=== PATIENT | male | born 1955 | race Caucasian/White ===

== ENCOUNTER → 2018-04-29 10:20 | Outpatient (CLI) | payer OTHER, SELFPAY ==
[2014-02-19 21:37] VITALS: BMI 41.9
[2018-04-29 12:14] LABS: Hematocrit 42.2 % (40-54); Hemoglobin 14.7 g/dl (13.0-16.5); Mean Corp Hgb Conc 34.8 g/gl (32-36); Mean Corpuscular Hgb 32.2 pg (27.0-32.0); Mean Corpuscular Volume 92.3 fL (80-94); Mean Platelet Vol. 10.6 fl (6.2-12.0); Platelet Count 217 K/mm3 (150-450); RBC Distribution Width CV 13.7 % (11.6-14.6); RBC Distribution Width SD 45.1 fl (35.1-43.9); Red Blood Count 4.57 M/mm3 (4.6-6.2); White Blood Count 6.3 K/mm3 (4.4-11.0)
[2018-04-29 12:25] LABS: Scan Indicated on CBC? Y/N NO
[2018-04-29 12:27] LABS: ALB/GLOB Ratio 0.9 RATIO (0.9-2.4); AST(SGOT) 29 U/L (15-37); Alanine Aminotransfer ALT/SGPT 51 U/L (16-61); Albumin, Serum 3.7 g/dL (3.2-5.0); Alkaline Phosphatase 60 U/L (45-117); Anion Gap 8 (5-15); BUN 13 mg/dL (7-18); BUN/Creat Ratio 14.9 RATIO (10-20); Chloride 103 mmol/L (98-107); Cholesterol 158 mg/dL (200); Creatinine, Serum 0.88 mg/dL (0.70-1.30); EST Glomerular Filtration Rate 94 mL/min (>60); Est Glom Filt Rate - Afr Amer 114 mL/min (>60); Globulin 3.9 g/dL (2.2-4.2); Glucose 143 mg/dL (74-106); High Density Lipoprotein 49 mg/dL; Potassium 3.3 mmol/L (3.5-5.1); Protein, Total 7.6 g/dL (6.4-8.2); Sodium Level 139 mmol/L (136-145); Triglycerides 148 mg/dL; Very Low Density Lipoprotein 30 mg/dL (5-40)
[2018-04-29 12:28] LABS: Hemoglobin A1c 6.9 % (4.2-6.3)
[2018-04-30 08:52] LABS: Hep C Antibodies <0.1 s/co ratio (0.0-0.9)
--- OUTSIDE RECORDS SUMMARY | 2018-06-24 18:42 | XMS RPT_ITS ---
:1955 Author Organization OHIP Care Team Providers Name Role Phone TAWANNA OLGUIN, MSStephanie FLORENTINO SStephanie Attending Unavailable TAWANNA OLGUIN, MSStephanie FLORENTINO SStephanie Primary Care Unavailable TAWANNA OLGUIN, MSStephanie FLORENTINO SStephanie Attending Unavailable TAWANNA OLGUIN, MSStephanie ARNOLDFLORENTINO SStephanie Primary Care Unavailable Baldev Maya Attending Unavailable Baldev Maya Referring Unavailable Florentino Leonard QUALITY PROCESS ENGINEER-C Primary Care Unavailable Florentino Leonard QUALITY PROCESS ENGINEER-C Attending Unavailable Florentino Leonard QUALITY PROCESS ENGINEER-C Referring Unavailable Florentino Leonard QUALITY PROCESS ENGINEER-C Primary Care Unavailable PROBLEMS PROBLEMS DATE TYPE CONDITION / CODE ATTENDING STATUS SOURCE 02/03/2018 Admitting Essential (primary) TAWANNA OLGUIN, Active [facility] Diagnosis hypertension / MS. [facility] I10(ICD-10) Repository 02/03/2018 Admitting Encounter for TAAWNNA RN LACTATION, Active [facility] Diagnosis screening for MS. FLORENTINO Mitchell malignant neoplasm Repository of prostate / Z12.5(ICD-10) 02/03/2018 Admitting Mixed hyperlipidemia TAWANNASANTANA OLGUIN, Active [facility] Diagnosis / E78.2(ICD-10) MS. FLORENTINO Mitchell Repository 08/08/2017 Admitting Type 2 diabetes TAWANNA RN LACTATION, Active [facility] Diagnosis mellitus with other MS. FLORENTINO Mitchell specified Repository complication / E11.69(ICD-10) PROCEDURES PROCEDURES No Procedure Records FoundRESULTS RESULTS PSA,TOTAL - ANNUAL Collected: 05/19/2018 Status: F Source: BLAINE SCREEN 10:39 AM [facility] REPOSITORY TYPE CODE TESTS RESULT OUT OF RANGE REFERENCE UNITS LAB L501.9910 0.00-4.00 ng/mL Normal PSA,TOT 0.46 SCREEN Result Comment: This test was performed using the TPSA assay method for the [employer] chemistry system. Values obtained with different assay methods cannot be used interchangably. When changing PSA assays in the course of monitoring a patient, additional sequential testing should be carried out to confirm baseline values. Performed By: #### L501.9910 #### [facility] [address] [facility], [address] CBC-COMPLETE BLOOD CNT Collected: 04/29/2018 Status: F Source: BLAINE NO DIFF 10:29 AM [facility] REPOSITORY TYPE CODE TESTS RESULT OUT OF RANGE REFERENCE UNITS LAB L100.1000 4.4-11.0 K/mm3 Normal WBC 6.3 LAB L100.1200 4.6-6.2 M/mm3 Low RBC 4.57 LAB L100.1300 13.0-16.5 g/dl Normal HGB 14.7 LAB L100.1400 40-54 % Normal HCT 42.2 LAB L100.1500 80-94 fL Normal MCV 92.3 LAB L100.1600 27.0-32.0 pg High MCH 32.2 LAB L100.1700 32-36 g/gl Normal MCHC 34.8 LAB L100.1810 11.6-14.6 % Normal RDW CV 13.7 LAB L100.1820 35.1-43.9 fl High RDW SD 45.1 LAB L100.1900 150-450 K/mm3 Normal PLT 217 LAB L100.2000 6.2-12.0 fl Normal MPV 10.6 Performed By: #### L100.0500 #### [facility] [address], [address] COMPREHENSIVE METABOLIC Collected: 04/29/2018 Status: F Source: BLAINE THRASHER 10:29 AM [facility] REPOSITORY TYPE CODE TESTS RESULT OUT OF RANGE REFERENCE UNITS LAB L501.0100 74-106 mg/dL High GLU 143 Result Comment: Fasting Glucose result greater than or equal to 126 mg/dL suggests DIABETES MELLITUS per A.D.A. criteria. Please note revised GLUCOSE reference range effective 2017. LAB L501.1000 7-18 mg/dL Normal BUN 13 LAB L501.1100 0.70-1.30 mg/dL Normal CREAT,SERUM 0.88 Result Comment: The validity of the calculated GFR AND GFRAA in patients over 70 years has not been determined. Clinical correlation is essential. LAB L501.1110 >60 mL/min Normal EST GFR 94 Result Comment: Non- GFR Calc LAB L501.1115 >60 mL/min Normal EST GFR - AA 114 Result Comment: GFR Calc LAB L501.1300 10-20 RATIO Normal BUN/CRE 14.9 LAB L501.1500 6.4-8.2 g/dL T Normal PROT 7.6 LAB L501.1800 3.2-5.0 g/dL Normal ALB 3.7 LAB L501.1950 2.2-4.2 g/dL Normal GLOB 3.9 LAB L501.2000 0.9-2.4 RATIO Normal A/G 0.9 LAB L501.2200 8.5-10.1 mg/dL CA Normal 9.0 LAB L501.4100 15-37 U/L Normal AST 29 LAB L501.4305 45-117 U/L Normal ALK P 60 LAB L501.4405 16-61 U/L Normal ALT 51 LAB L501.4600 0.20-1.00 mg/dL High T BILI 1.20 LAB L501.5300 136-145 mmol/L NA Normal 139 LAB L501.5600 3.5-5.1 mmol/L Low K 3.3 LAB L501.5900 98-107 mmol/L CL Normal 103 LAB L501.6100 21.0-32.0 mmol/L Normal CO2 28.0 LAB L501.6200 5-15 Normal GAP 8 Performed By: #### L500.4050, L500.4100 #### [facility] [address] [place], [place], [id number] LIPID PROFILE Collected: 04/29/2018 Status: F Source: GRATON 10:29 AM [facility] REPOSITORY TYPE CODE TESTS RESULT OUT OF RANGE REFERENCE UNITS LAB L501.4900 200 mg/dL Normal CHOL 158 Result Comment: <200 mg/dL Desirable 200-240 mg/dL Borderline >240 mg/dL High Risk LAB L501.5000 mg/dL Normal TRIG 148 Result Comment: The drugs N-Acetylcysteine and Metamizole may falsely depress this assay. Serum Triglycerides Reference Interval Normal <150 mg/dL Borderline high 150 - 199 mg/dL High 200 - 499 mg/dL Very High > or = 500 mg/dL LAB L501.6400 mg/dL Normal HDL 49 Result Comment: The drugs N-Acetylcysteine and Metamizole may falsely depress this assay. Reference Range HDL <40 mg/dL Low HDL Cholesterol HDL >or= 60 mg/dL High HDL Cholesterol LAB L501.6500 0-130 mg/dL Normal LDL 79 LAB L501.6600 5-40 mg/dL Normal VLDL 30 Performed By: #### L500.4050, L500.4100 #### [facility] [address] [facility]. [place], [place], [id number] HEMOGLOBIN A1C Collected: 04/29/2018 Status: F Source: [place] 10:29 AM [facility] REPOSITORY TYPE CODE TESTS RESULT OUT OF RANGE REFERENCE UNITS LAB L501.9985 4.2-6.3 % High HGB A1C 6.9 Performed By: #### L501.9985 #### [facility] [address] [facility]. [place], [place], [address] HEPATITIS C ANTIBODIES Collected: 04/29/2018 Status: F Source: [place] 10:29 AM [facility] REPOSITORY TYPE CODE TESTS RESULT OUT OF RANGE REFERENCE UNITS LAB L3100.0650 0.0-0.9 s/co ratio Normal HEP C AB <0.1 Result Comment: Negative: < 0.8 Indeterminate: 0.8 - 0.9 Positive: > 0.9 The CDC recommends that a positive HCV antibody result be followed up with a HCV Nucleic Acid Amplification test (456704). Performed at: - [facility] [address] [id number] [employer] Supervisor: Jr Wolf PhD, Phone: [phone] Performed By: #### L3100.0625 #### [facility] (refer to report for specific site) refer to report for address and phone number CBC Collected: 02/03/2018 Status: F Source: [facility] 10:28 AM [facility] REPOSITORY TYPE CODE TESTS RESULT OUT OF REFERENCE UNITS RANGE LAB WBC(LOINC) 4.60-10.80 10 3/mcL WBC 6.40 LAB RBCCT(LOINC 4.04-6.13 10 6/mcL ) RBC 4.60 LAB HGB(LOINC) 14.0-18.0 G/dL Hgb 15.0 LAB HCT(LOINC) 42.0-52.0 % Hct 42.6 LAB MCV(LOINC) 80.0-94.0 fL MCV 92.6 LAB MCH(LOINC) 27.0-31.2 pg High MCH 32.6 LAB MCHC(LOINC) 31.8-35.4 G/dL MCHC 35.3 LAB RDW(LOINC) 11.5-14.5 % RDW 14.3 LAB PLT(LOINC) 130-400 10 3/mcL Platelet 214 LAB MPV(LOINC) 7.4-10.4 fL MPV 8.7 Performed By: #### CBC, ADIFF, ANEU #### [address] [address] #### PSA, LIPID, CMP, GFR #### [address] [address] .AUTO DIFF Collected: 02/03/2018 Status: F Source: [facility] 10:28 AM [facility] REPOSITORY TYPE CODE TESTS RESULT OUT OF REFERENCE UNITS RANGE LAB NEDRA(LOINC) 37.0-80.0 % Neutrophil % 49.7 LAB LYM(LOINC) 10.0-50.0 % Lymphocyte % 34.3 LAB MON(LOINC) 1.7-13.0 % Monocyte % 8.3 LAB EO(LOINC) 0.0-7.0 % Eosinophil % 6.9 LAB BAS(LOINC) 0.0-2.5 % Basophil % 0.8 LAB ABLYM(LOIN 0.77-3.85 10 3/mcL C) Lymphocyte, 2.20 Absolute LAB ALFREDO(LOINC 0.15-1.00 10 3/mcL ) Monocyte, 0.50 Absolute LAB AEOS(LOINC 0.00-0.40 10 3/mcL ) Eosinophil, 0.40 Absolute LAB ABAS(LOINC 0.00-0.19 10 3/mcL ) Basophil, 0.10 Absolute Performed By: #### CBC, ADIFF, ANEU #### [place] [address] #### PSA, LIPID, CMP, GFR #### [place] [address] .NEUABS Collected: 02/03/2018 Status: F Source: [facility] [employer] 10:28 [facility] REPOSITORY TYPE CODE TESTS RESULT OUT OF REFERENCE UNITS RANGE LAB ANEU(LOINC) 2.85-6.16 10 3/mcL Neutrophil, 3.20 Absolute Performed By: #### CBC, ADIFF, ANEU #### [place] [address] #### PSA, LIPID, CMP, GFR #### [place] [address] PSA Collected: 02/03/2018 Status: F Source: [facility] [employer] 10:28 [facility] REPOSITORY TYPE CODE TESTS RESULT OUT OF REFERENCE UNITS RANGE LAB PSA(LOINC) 0.00-4.00 ng/mL Prostate 0.52 Specific Antigen Performed By: #### CBC, ADIFF, ANEU #### [place] [address] #### PSA, LIPID, CMP, GFR #### [place] [address] LIPID Collected: 02/03/2018 Status: F Source: [place] [employer] 10:28 [facility] REPOSITORY TYPE CODE TESTS RESULT OUT OF REFERENCE UNITS RANGE LAB CHOL(LOINC 0-200 mg/dL ) Cholesterol 149 Result Comment: Cholesterol Reference Interval: Less than 200 Desirable 200-239 Borderline high risk 240 and above High risk LAB TRIG(LOINC) 0-150 mg/dL Triglycerides High 169 Result Comment: Triglyceride Reference Interval: Less than 150 Normal 150-199 Borderline high risk 200-499 High risk 500 or higher Very high risk LAB HD(LOINC) 40-60 mg/dL HDL Cholesterol 43 LAB LDL(LOINC) 0-130 mg/dL LDL Cholesterol 72 Performed By: #### CBC, PATRICIAIFF, ANEU #### [place] [address] [place], [place] [address] #### PSA, LIPID, CMP, GFR #### [place] [address] CMP Collected: 02/03/2018 Status: F Source: [facility] 10:28 AM [facility] REPOSITORY TYPE CODE TESTS RESULT OUT OF REFERENCE UNITS RANGE LAB GLU(LOINC) 80-115 mg/dL Glucose Level 85 LAB NA(LOINC) 136-145 mmol/L Sodium Level 142 LAB K(LOINC) 3.5-5.1 mmol/L Low Potassium Level 3.2 LAB CL(LOINC) 98-107 mmol/L Chloride 102 LAB CO2(LOINC) 23-31 mmol/L CO2 25 LAB EBAL(LOINC mEq/L ) Electrolyte Balance 15.0 LAB BUN(LOINC) 7-18 mg/dL BUN 13 LAB CRE(LOINC) 0.70-1.30 mg/dL Creatinine Lvl (s) 0.85 LAB BC(LOINC) 7-27 ratio BUN/Creatinine 15 Ratio LAB CA(LOINC) 8.4-10.2 mg/dL Calcium Lvl 9.3 LAB PROT(LOINC 6.4-8.2 G/dL ) Total Protein 6.9 LAB ALB(LOINC) 3.4-4.8 G/dL Albumin Level 3.7 LAB GLB(LOINC) G/dL Globulin 3.2 LAB AG(LOINC) 1.1-2.5 ratio A/G Ratio 1.2 LAB BILT(LOINC 0.2-1.0 mg/dL ) Bili Total High 1.4 LAB AP(LOINC) 40-135 U/L Alk Phos 44 LAB AST(LOINC) 10-40 U/L AST/SGOT 33 LAB ALT(LOINC) 10-35 U/L ALT/SGPT High 52 Performed By: #### CBC, ADIFF, ANEU #### [place] [address] [place], [place] [address] #### PSA, LIPID, CMP, GFR #### [facility] [address] [place] [address] .GFR Collected: 02/03/2018 Status: F Source: [employer] 10:28 AM [facility] REPOSITORY TYPE CODE TESTS RESULT OUT OF REFERENCE UNITS RANGE LAB GFRAA(LOINC ml/min/1.73 ) sqm GFR 111 Bahamian Result Comment: GFR Population mean for , Non- Americans Ages 20-29 = 116 mL/min/1.73 sq.m. Ages 30-39 = 107 mL/min/1.73 sq.m. Ages 40-49 = 99 mL/min/1.73 sq.m. Ages 50-59 = 93 mL/min/1.73 sq.m. Ages 60-69 = 85 mL/min/1.73 sq.m. Ages 70+ = 75 mL/min/1.73 sq.m. Chronic Kidney Disease: Less than 60 mL/min/1.73 square meters End Stage Renal Disease: Less than 15 mL/min/1.73 square meters LAB GFRNO(LOINC) ml/min/1.73sqm GFR Non- 92 Result Comment: GFR Population mean for , Non- Americans Ages 20-29 = 116 mL/min/1.73 sq.m. Ages 30-39 = 107 mL/min/1.73 sq.m. Ages 40-49 = 99 mL/min/1.73 sq.m. Ages 50-59 = 93 mL/min/1.73 sq.m. Ages 60-69 = 85 mL/min/1.73 sq.m. Ages 70+ = 75 mL/min/1.73 sq.m. Chronic Kidney Disease: Less than 60 mL/min/1.73 square meters End Stage Renal Disease: Less than 15 mL/min/1.73 square meters Performed By: #### CBC, ADIFF, ANEU #### [facility] [address] [address] #### PSA, LIPID, CMP, GFR #### [address] [address] CBC Collected: 08/08/2017 Status: F Source: [employer] 10:35 AM [facility] REPOSITORY TYPE CODE TESTS RESULT OUT OF REFERENCE UNITS RANGE LAB WBC(LOINC) 4.60-10.80 10 3/mcL WBC 7.50 LAB RBCCT(LOINC 4.04-6.13 10 6/mcL ) RBC 4.87 LAB HGB(LOINC) 14.0-18.0 G/dL Hgb 15.1 LAB HCT(LOINC) 42.0-52.0 % Hct 44.9 LAB MCV(LOINC) 80.0-94.0 fL MCV 92.1 LAB MCH(LOINC) 27.0-31.2 pg MCH 30.9 LAB MCHC(LOINC) 31.8-35.4 G/dL MCHC 33.6 LAB RDW(LOINC) 11.5-14.5 % RDW 14.3 LAB PLT(LOINC) 130-400 10 3/mcL Platelet 189 LAB MPV(LOINC) 7.4-10.4 fL MPV 9.7 Performed By: #### CBC, ADIFF, ANEU, CMP, GFR, LIPID #### [address] [address] .AUTO DIFF Collected: 08/08/2017 Status: F Source: [facility] 10:35 AM [facility] REPOSITORY TYPE CODE TESTS RESULT OUT OF REFERENCE UNITS RANGE LAB NEDRA(LOINC) 37.0-80.0 % Neutrophil % 64.2 LAB LYM(LOINC) 10.0-50.0 % Lymphocyte % 23.2 LAB MON(LOINC) 1.7-13.0 % Monocyte % 7.0 LAB EO(LOINC) 0.0-7.0 % Eosinophil % 4.9 LAB BAS(LOINC) 0.0-2.5 % Basophil % 0.7 LAB ABLYM(LOIN 0.77-3.85 10 3/mcL C) Lymphocyte, 1.70 Absolute LAB ALFREDO(LOINC 0.15-1.00 10 3/mcL ) Monocyte, 0.50 Absolute LAB AEOS(LOINC 0.00-0.40 10 3/mcL ) Eosinophil, 0.40 Absolute LAB ABAS(LOINC 0.00-0.19 10 3/mcL ) Basophil, 0.00 Absolute Performed By: #### CBC, ADIFF, ANEU, CMP, GFR, LIPID #### [address] [address] .NEUABS Collected: 08/08/2017 Status: F Source: [facility] 10:35 AM [facility] REPOSITORY TYPE CODE TESTS RESULT OUT OF REFERENCE UNITS RANGE LAB ANEU(LOINC) 2.85-6.16 10 3/mcL Neutrophil, 4.80 Absolute Performed By: #### CBC, ADIFF, ANEU, CMP, GFR, LIPID #### [place] [address] [place], [place] [address] CMP Collected: 08/08/2017 Status: F Source: [facility] 10:35 AM [facility] REPOSITORY TYPE CODE TESTS RESULT OUT OF REFERENCE UNITS RANGE LAB 1547-9 70-105 mg/dL GLUCOSE High 127 LAB NA(LOINC) 136-146 mEq/L Sodium Level 139 LAB K(LOINC) 3.5-5.1 mEq/L Potassium Level 3.9 LAB CL(LOINC) 98-107 mEq/L Chloride 98 LAB CO2(LOINC) 22-29 mEq/L CO2 High 33 LAB EBAL(LOINC mEq/L ) Electrolyte Balance 8.0 LAB BUN(LOINC) 7.0-18.0 mg/dL BUN 14.4 LAB CRE(LOINC) 0.6-1.2 mg/dL Creatinine Lvl (s) 0.9 LAB BC(LOINC) 7-27 ratio BUN/Creatinine 16 Ratio LAB CA(LOINC) 8.4-10.2 mg/dL Calcium Lvl 9.7 LAB PROT(LOINC 6.0-8.3 G/dL ) Total Protein 6.7 LAB ALB(LOINC) 3.5-5.0 G/dL Albumin Level 4.1 LAB GLB(LOINC) G/dL Globulin 2.6 LAB AG(LOINC) 1.1-2.5 ratio A/G Ratio 1.6 LAB BILT(LOINC 0.2-1.0 mg/dL ) Bili Total High 1.2 LAB AP(LOINC) 40-135 IU/L Alk Phos 55 LAB AST(LOINC) 10-40 IU/L AST/SGOT High 44 LAB ALT(LOINC) 10-35 IU/L ALT/SGPT High 69 Performed By: #### CBC, ADIFF, ANEU, CMP, GFR, LIPID #### [place] [address] [place], [place] [address] .GFR Collected: 08/08/2017 Status: F Source: [employer] 10:35 AM [facility] REPOSITORY TYPE CODE TESTS RESULT OUT OF REFERENCE UNITS RANGE LAB GFRAA(LOINC ml/min/1.73 ) sqm GFR 106 Bahamian Result Comment: GFR Population mean for , Non- Americans Ages 20-29 = 116 mL/min/1.73 sq.m. Ages 30-39 = 107 mL/min/1.73 sq.m. Ages 40-49 = 99 mL/min/1.73 sq.m. Ages 50-59 = 93 mL/min/1.73 sq.m. Ages 60-69 = 85 mL/min/1.73 sq.m. Ages 70+ = 75 mL/min/1.73 sq.m. Chronic Kidney Disease: Less than 60 mL/min/1.73 square meters End Stage Renal Disease: Less than 15 mL/min/1.73 square meters LAB GFRNO(LOINC) ml/min/1.73sqm GFR Non- >60 Result Comment: GFR Population mean for , Non- Americans Ages 20-29 = 116 mL/min/1.73 sq.m. Ages 30-39 = 107 mL/min/1.73 sq.m. Ages 40-49 = 99 mL/min/1.73 sq.m. Ages 50-59 = 93 mL/min/1.73 sq.m. Ages 60-69 = 85 mL/min/1.73 sq.m. Ages 70+ = 75 mL/min/1.73 sq.m. Chronic Kidney Disease: Less than 60 mL/min/1.73 square meters End Stage Renal Disease: Less than 15 mL/min/1.73 square meters Performed By: #### CBC, ADIFF, ANEU, CMP, GFR, LIPID #### [place] [id number] LIPID Collected: 08/08/2017 Status: F Source: [employer] 10:35 AM [facility] REPOSITORY TYPE CODE TESTS RESULT OUT OF REFERENCE UNITS RANGE LAB CHOL(LOINC 131-200 mg/dL ) Cholesterol 157 Result Comment: Cholesterol Reference Interval: Less than 200 Desirable 200-239 Borderline high risk 240 and above High risk LAB TRIG(LOINC) 40-150 mg/dL Triglycerides 114 Result Comment: Triglyceride Reference Interval: Less than 150 Normal 150-199 Borderline high risk 200-499 High risk 500 or higher Very high risk LAB HD(LOINC) 35-90 mg/dL HDL Cholesterol 49 Result Comment: HDL Reference Interval: Less than 40 Low - high risk 60 or above Optimal/lowers risk LAB LDL(LOINC) 0-130 mg/dL LDL Cholesterol 85 Result Comment: LDL is a calculated result and requires a 12-hr fast. LDL Reference Interval: Less than 100 Optimal 100-129 Near or above optimal 130-159 Borderline high risk 160-189 High risk 190 and above Very high risk Performed By: #### CBC, ADIFF, ANEU, CMP, GFR, LIPID #### [place] [address] [place], [place] [address] ALLERGIES ALLERGIES DATE TYPE / CODE NAME / CODE REACTION SEVERITY SOURCE 02/19/2014 Drug No Known Unknown [facility] Allergy/4160 Allergies/F00 [facility] [address]31(SNOMED [id number](RXNOR Repository CT) M) ENCOUNTERS ENCOUNTERS ADMIT/DISCHARGE ACCOUNT NUMBER ADMITTING ENCOUNTER LOCATION SOURCE CLASS 05/19/2018 [id number] [facility] ding:[facility] Repository 04/29/2018 [id number] [facility] ding:[facility] Repository 02/03/2018/02/08/[id number] ding:[facility] Repository 08/08/2017/08/13/[id number] ding:[facility] Repository PAYERS PAYERS ENCOUNTER GUARANTOR PAYER SUBSCRIBER SOURCE 05/19/2018 MAURICE SANTOS0 Primary ULISES [address] [place] [address] Insurance:MEDICAL BROWNDOB: [facility] [id number] Hospital [address]Jgo: [phone]) Number: Repository [phone] () [id number] Date:[id number] [address]IG: 05/19/2018 Secondary NOT GIVENUNK [place] Insurance:SELF PAY [facility] Number: Effective Repository Date:2018-05-19 04/29/2018 Maurice Santos0 Primary ULISES E [place] [address] Insurance:MEDICAL BROWNDOB: [facility] [place], [place] [facility] [id number] Hospital [address]Vmh: [phone]) Number: Repository [phone] (HP) [id number] Date:[id number], [place] [address]PP: 04/29/2018 Secondary NOT GIVENUNK [place] Insurance:SELF PAY [facility] Number: Effective Repository Date:2018-04-29 02/03/2018 MAURICE Shaffer [facility]MEDICAL BROWNDOB: [facility] [address] [id number] Repository [address] Number: [address] [place] [id number] [email or web address]@S Date:2018-02-03Tel: [phone]) [email or web address].COMTel: [phone] Name:[employer] BOX (HP)Tel: (000) (HP)Tel: [phone] [address], [place] [phone] (WP) [phone] ([phone]: 08/08/2017 MAURICE Shaffer [facility]:MEDICAL BROWNDOB: [facility] E [address] [id number] Repository [address] Number: [address] [place], [place] [id number] [place] [address]~[email or web address]@S Date:2017-08-08Tel: [phone]) [email or web address]: [phone] Name:BPO BOX (HP)Tel: (000) (HP)Tel: [phone] [address], [place] [phone] (WP) [phone] (WP) [phone]:
== END ==
PROVIDERS: Family Provider Nurse Practitioner Primary Care; PCP Nurse Practitioner Primary Care; Referring Provider Nurse Practitioner Primary Care; Visit Provider Nurse Practitioner Primary Care
DX: Z11.59 Encounter for screening for other viral diseases (principal); E78.2 Mixed hyperlipidemia; E11.69 Type 2 diabetes mellitus with other specified complication
CPT/HCPCS: 36415; 80053; 80061; 83036; 85027; 86803

== ENCOUNTER → 2018-05-19 10:33 | Outpatient (CLI) | payer OTHER, SELFPAY ==
[2018-05-19 12:24] LABS: PSA,Total - Annual Screen 0.46 ng/mL (0.00-4.00)
--- OUTSIDE RECORDS SUMMARY | 2018-08-20 18:40 | XMS RPT_ITS ---
:1955 Author Organization [facility] Care Team Providers Name Role Phone TAWANNA OLGUIN, MSStephanie FLORENTINO SStephanie Attending Unavailable TAWANNA OLGUIN, MSStephanie FLORENTINO SStephanie Primary Care Unavailable TAWANNA OLGUIN, MSStephanie FLORENTINO SStephanie Attending Unavailable TAWANNA OLGUIN, MSStephanie ARNOLDFLORENTINO SStephanie Primary Care Unavailable Baldev Maya Attending Unavailable Baldev Maya Referring Unavailable Florentino Leonard TURBINE INSPECTOR-C Primary Care Unavailable Florentino Leonard TURBINE INSPECTOR-C Attending Unavailable Florentino Leonard TURBINE INSPECTOR-C Referring Unavailable Florentino Leonard TURBINE INSPECTOR-C Primary Care Unavailable PROBLEMS PROBLEMS DATE TYPE CONDITION / CODE ATTENDING STATUS SOURCE 02/03/2018 Admitting Essential (primary) TAWANNA OLGUIN, Active [facility] Diagnosis hypertension / MS. [facility] S. [facility] I10(ICD-10) Repository 02/03/2018 Admitting Encounter for TAWANNA SECURITY AND COMPLIANCE ANALYST, Active [facility] Diagnosis screening for MS. FLORENTINO Mitchell malignant neoplasm Repository of prostate / Z12.5(ICD-10) 02/03/2018 Admitting Mixed hyperlipidemia TAWANNASANTANA OLGUIN, Active [facility] Diagnosis / E78.2(ICD-10) MS. FLORENTINO Mitchell Repository 08/08/2017 Admitting Type 2 diabetes TAWANNA SECURITY AND COMPLIANCE ANALYST, Active [facility] Diagnosis mellitus with other MS. FLORENTINO Mitchell specified Repository complication / E11.69(ICD-10) PROCEDURES PROCEDURES No Procedure Records FoundRESULTS RESULTS PSA,TOTAL - ANNUAL Collected: 05/19/2018 Status: F Source: [place] SCREEN 10:39 AM [facility] REPOSITORY TYPE CODE TESTS RESULT OUT OF RANGE REFERENCE UNITS LAB L501.9910 0.00-4.00 ng/mL Normal PSA,TOT 0.46 SCREEN Result Comment: This test was performed using the TPSA assay method for the [employer] chemistry system. Values obtained with different assay methods cannot be used interchangably. When changing PSA assays in the course of monitoring a patient, additional sequential testing should be carried out to confirm baseline values. Performed By: #### L501.9910 #### [facility] [address] [place], [address] CBC-COMPLETE BLOOD CNT Collected: 04/29/2018 Status: F Source: [place] NO DIFF 10:29 AM [facility] REPOSITORY TYPE CODE TESTS RESULT OUT OF [...] MPV 10.6 Performed By: #### L100.0500 #### [facility] [address] [place], [address] COMPREHENSIVE METABOLIC Collected: 04/29/2018 Status: F Source: [place] THRASHER 10:29 AM [facility] REPOSITORY TYPE CODE TESTS RESULT OUT OF [...] 8 Performed By: #### L500.4050, L500.4100 #### [facility] [address] [place], [place], [id number] LIPID PROFILE Collected: 04/29/2018 Status: F Source: [place] 10:29 AM [facility] REPOSITORY TYPE CODE TESTS RESULT OUT OF [...] 30 Performed By: #### L500.4050, L500.4100 #### [facility] [address] [place], [place], [id number] HEMOGLOBIN A1C Collected: 04/29/2018 Status: F Source: [place] 10:29 AM [facility] REPOSITORY TYPE CODE TESTS RESULT OUT OF RANGE REFERENCE UNITS LAB L501.9985 4.2-6.3 % High HGB A1C 6.9 Performed By: #### L501.9985 #### [facility] [address] [place], [place], [address] HEPATITIS C ANTIBODIES Collected: 04/29/2018 Status: F Source: [place] 10:29 AM [facility] REPOSITORY TYPE CODE TESTS RESULT OUT OF RANGE REFERENCE UNITS LAB L3100.0650 0.0-0.9 s/co ratio Normal HEP C AB <0.1 Result Comment: Negative: < 0.8 Indeterminate: 0.8 - 0.9 Positive: > 0.9 The CDC recommends that a positive HCV antibody result be followed up with a HCV Nucleic Acid Amplification test (400805). Performed at: - [facility] [address] [id number] Grass Farmer: Jr Wolf PhD, Phone: [phone] Performed By: #### L3100.0625 #### [facility] (refer to report for specific site) refer to report for address and phone number CBC Collected: 02/03/2018 Status: F Source: [facility] 10:28 AM [facility] REPOSITORY TYPE CODE TESTS RESULT OUT OF [...] Performed By: #### CBC, ADIFF, ANEU #### [address] [address] #### PSA, LIPID, CMP, GFR #### [address] [address] .AUTO DIFF Collected: 02/03/2018 Status: F Source: [facility] 10:28 AM [facility] REPOSITORY TYPE CODE TESTS RESULT OUT OF [...] Performed By: #### CBC, ADIFF, ANEU #### [place] [address] #### PSA, LIPID, CMP, GFR #### [place] [address] .NEUABS Collected: 02/03/2018 Status: F Source: [place] [facility] 10:28 [facility] REPOSITORY TYPE CODE TESTS RESULT OUT OF REFERENCE UNITS RANGE LAB ANEU(LOINC) 2.85-6.16 10 3/mcL Neutrophil, 3.20 Absolute Performed By: #### CBC, ADIFF, ANEU #### [place] [address] #### PSA, LIPID, CMP, GFR #### [place] [address] PSA Collected: 02/03/2018 Status: F Source: [place] [facility] 10:28 [facility] REPOSITORY TYPE CODE TESTS RESULT OUT OF REFERENCE UNITS RANGE LAB PSA(LOINC) 0.00-4.00 ng/mL Prostate 0.52 Specific Antigen Performed By: #### CBC, ADIFF, ANEU #### [place] [address] #### PSA, LIPID, CMP, GFR #### [place] [address] LIPID Collected: 02/03/2018 Status: F Source: [place] [facility] 10:28 [facility] REPOSITORY TYPE CODE TESTS RESULT OUT OF [...] Performed By: #### CBC, PATRICIAIFF, ANEU #### [place] [address] [place], [place] [address] #### PSA, LIPID, CMP, GFR #### [place] [address] CMP Collected: 02/03/2018 Status: F Source: [facility] 10:28 AM [facility] REPOSITORY TYPE CODE TESTS [...] Performed By: #### CBC, ADIFF, ANEU #### [place] [address] [place], [place] [address] #### PSA, LIPID, CMP, GFR #### [facility] [address] [place] [address] .GFR Collected: 02/03/2018 Status: F [facility] 10[facility] AM [facility] REPOSITORY TYPE CODE TESTS RESULT OUT OF REFERENCE UNITS RANGE LAB GFRAA(LOINC ml/min/1.73 ) sqm GFR 111 Danish Result Comment: GFR Population mean for , [...] By: #### CBC, ADIFF, ANEU #### Manisha [address] [address] #### PSA, LIPID, CMP, GFR #### [address] [address] CBC Collected: 08/08/2017 Status: F [facility]: [facility] 10:35 AM [facility] REPOSITORY TYPE CODE TESTS RESULT OUT OF [...] CBC, ADIFF, ANEU, CMP, GFR, LIPID #### [address] [address] .AUTO DIFF Collected: 08/08/2017 Status: F Source: [facility] 10:35 AM [facility] REPOSITORY TYPE CODE TESTS RESULT OUT OF [...] CBC, ADIFF, ANEU, CMP, GFR, LIPID #### [address] [address] .NEUABS Collected: 08/08/2017 Status: F Source: [facility] 10:35 AM [facility] REPOSITORY TYPE CODE TESTS RESULT OUT OF REFERENCE UNITS RANGE LAB ANEU(LOINC) 2.85-6.16 10 3/mcL Neutrophil, 4.80 Absolute Performed By: #### CBC, ADIFF, ANEU, CMP, GFR, LIPID #### [place] [address] [place], [place] [address] CMP Collected: 08/08/2017 Status: F Source: [facility] 10:35 AM [facility] REPOSITORY TYPE CODE TESTS RESULT OUT OF [...] ADIFF, ANEU, CMP, GFR, LIPID #### [place] [address] [place], [place] [address] .GFR Collected: 08/08/2017 Status: F Source: [facility] 10:35 AM [facility] REPOSITORY TYPE CODE TESTS RESULT OUT OF REFERENCE UNITS RANGE LAB GFRAA(LOINC ml/min/1.73 ) sqm GFR 106 Danish Result Comment: GFR Population mean for , [...] ADIFF, ANEU, CMP, GFR, LIPID #### [place] [address] LIPID Collected: 08/08/2017 Status: F Source: [facility] 10:35 AM [facility] REPOSITORY TYPE CODE TESTS RESULT OUT OF [...] ADIFF, ANEU, CMP, GFR, LIPID #### [place] [address] [place], [place] [address] ALLERGIES ALLERGIES DATE TYPE / CODE NAME / CODE REACTION SEVERITY SOURCE 02/19/2014 Drug No Known Unknown [facility] Allergy/4160 Allergies/F00 [facility] [address](SNOMED [id number](RXNOR Repository CT) M) ENCOUNTERS ENCOUNTERS ADMIT/DISCHARGE ACCOUNT NUMBER ADMITTING ENCOUNTER LOCATION SOURCE CLASS 05/19/2018 [id number] [facility] ding:[facility] Repository 04/29/2018 [id number] [facility] ding:[facility] Repository 02/03/2018/02/08/[id number] ding:[facility] Repository 08/08/2017/08/13/[id number] ding:[facility] Repository PAYERS PAYERS ENCOUNTER GUARANTOR PAYER SUBSCRIBER SOURCE 05/19/2018 MAURICE SANTOS0 Primary ULISES [address] [place] [address] Insurance:MEDICAL BROWNDOB: [facility] [id number] [address]Dhf: [phone]) Number: Repository [phone] () [id number] Date:[id number] [address]VJ: 05/19/2018 Secondary NOT GIVENUNK [place] Insurance:SELF PAY [facility] Number: Effective Repository Date:2018-05-19 04/29/2018 Maurice Santos0 Primary [address] [address] [place] [address] Insurance:MEDICAL BROWNDOB: [facility] [place] [facility] [id number] [address]Kef: [phone]) Number: Repository [phone] (HP) [id number] Date:[id number], [place] [address]ZE: 04/29/2018 Secondary NOT GIVENUNK [place] Insurance:SELF PAY [facility] Number: Effective Repository Date:2018-04-29 02/03/2018 MAURICE Shaffer [facility]ICAL BROWNDOB: [facility] [address] [id number] Repository [address] Number: [address] [place] [id number] [place] [email or web address]@S Date:2018-02-03Tel: [phone]) [email or web address].COMTel: [phone] Name:[address] BOX (HP)Tel: (000) (HP)Tel: [phone]) [address], [place] [phone] (WP) [phone] (WP) [phone]: 08/08/2017 MAURICE Shaffer Primary [facility]:MEDICAL BROWNDOB: [facility] [address] [id number] Repository [address] Number: [address] [place], [place] [id number] [place] [email or web address]@S Date:2017-08-08Tel: [phone]) [email or web address].COMTel: [phone] Name:[address] BOX (HP)Tel: (000) (HP)Tel: [phone]) [address], [place] [phone] (WP) [phone] (WP) [phone]:
== END ==
PROVIDERS: Family Provider Nurse Practitioner Primary Care; PCP Nurse Practitioner Primary Care; Referring Provider Urology; Visit Provider Urology
DX: Z12.5 Encounter for screening for malignant neoplasm of prostate (principal)
CPT/HCPCS: 36415; 84153; G0103

== ENCOUNTER → 2018-07-31 11:59 | Outpatient (CLI) | payer OTHER, SELFPAY ==
[2014-02-19 21:37] VITALS: BMI 41.9
[2018-07-31 14:29] LABS: Hematocrit 46.4 % (40-54); Hemoglobin 15.8 g/dl (13.0-16.5); Mean Corp Hgb Conc 34.1 g/gl (32-36); Mean Corpuscular Hgb 32.2 pg (27.0-32.0); Mean Corpuscular Volume 94.7 fL (80-94); Mean Platelet Vol. 10.9 fl (6.2-12.0); Platelet Count 178 K/mm3 (150-450); RBC Distribution Width CV 14.2 % (11.6-14.6); RBC Distribution Width SD 47.7 fl (35.1-43.9); White Blood Count 6.3 K/mm3 (4.4-11.0)
[2018-07-31 14:33] LABS: AST(SGOT) 30 U/L (15-37); Alanine Aminotransfer ALT/SGPT 42 U/L (16-61); Albumin, Serum 3.8 g/dL (3.2-5.0); Alkaline Phosphatase 62 U/L (45-117); Anion Gap 9 (5-15); BUN 14 mg/dL (7-18); BUN/Creat Ratio 15.1 RATIO (10-20); Calcium,Total 9.2 mg/dL (8.5-10.1); Chloride 101 mmol/L (98-107); Cholesterol 156 mg/dL (200); Creatinine, Serum 0.93 mg/dL (0.70-1.30); EST Glomerular Filtration Rate 88 mL/min (>60); Est Glom Filt Rate - Afr Amer 107 mL/min (>60); Globulin 3.8 g/dL (2.2-4.2); Glucose 129 mg/dL (74-106); High Density Lipoprotein 49 mg/dL; Potassium 3.9 mmol/L (3.5-5.1); Protein, Total 7.6 g/dL (6.4-8.2); Sodium Level 142 mmol/L (136-145); Triglycerides 135 mg/dL; Very Low Density Lipoprotein 27 mg/dL (5-40)
[2018-07-31 14:34] LABS: Scan Indicated on CBC? Y/N NO
[2018-08-02 10:01] LABS: Hep C Antibodies <0.1 s/co ratio (0.0-0.9)
== END ==
PROVIDERS: Family Provider Nurse Practitioner Primary Care; PCP Nurse Practitioner Primary Care; Referring Provider Nurse Practitioner Primary Care; Visit Provider Nurse Practitioner Primary Care
DX: Z11.59 Encounter for screening for other viral diseases (principal); E78.2 Mixed hyperlipidemia; E11.69 Type 2 diabetes mellitus with other specified complication
CPT/HCPCS: 36415; 80053; 80061; 83036; 85027; 86803

== ENCOUNTER → 2018-11-02 | Outpatient (CLI) | payer OTHER, SELFPAY ==
[2014-02-19 21:37] VITALS: BMI 41.9
[2018-11-02 10:52] LABS: Absolute Neutrophil Count 4.5 X10^3/uL (2.0-7.7); Basophil# 0.02 X10^3/uL; Basophil% 0.3 % (0-1); Eosinophil# 0.69 X10^3/uL; Eosinophils% 8.9 % (0-5); Hematocrit 45.6 % (40-54); Hemoglobin 15.9 g/dl (13.0-16.5); Lymphocyte % 24.4 % (19-41); Mean Corp Hgb Conc 34.9 g/gl (32-36); Mean Corpuscular Hgb 31.5 pg (27.0-32.0); Mean Corpuscular Volume 90.5 fL (80-94); Mean Platelet Vol. 11.4 fl (6.2-12.0); Monocyte# 0.63 X10^3/uL; Monocyte% 8.1 % (0-10); Neutrophil # 4.52 X10^3/uL (2.7-7.7); Platelet Count 199 K/mm3 (150-450); RBC Distribution Width CV 13.7 % (11.6-14.6); RBC Distribution Width SD 45.1 fl (35.1-43.9); Red Blood Count 5.04 M/mm3 (4.6-6.2); White Blood Count 7.8 K/mm3 (4.4-11.0)
[2018-11-02 11:00] LABS: POSITIVE COUNT NO; POSITIVE DIFFERENTIAL NO; POSITIVE MORPHOLOGY NO
[2018-11-02 11:08] LABS: ALB/GLOB Ratio 0.9 RATIO (0.9-2.4); AST(SGOT) 25 U/L (15-37); Alanine Aminotransfer ALT/SGPT 49 U/L (16-61); Albumin, Serum 3.6 g/dL (3.2-5.0); Alkaline Phosphatase 54 U/L (45-117); Anion Gap 9 (5-15); BUN 10 mg/dL (7-18); BUN/Creat Ratio 10.9 RATIO (10-20); Calcium,Total 8.9 mg/dL (8.5-10.1); Chloride 101 mmol/L (98-107); Cholesterol 141 mg/dL (200); Creatinine, Serum 0.92 mg/dL (0.70-1.30); EST Glomerular Filtration Rate 89 mL/min (>60); Est Glom Filt Rate - Afr Amer 108 mL/min (>60); Globulin 3.9 g/dL (2.2-4.2); Glucose 138 mg/dL (74-106); High Density Lipoprotein 38 mg/dL; Potassium 3.2 mmol/L (3.5-5.1); Protein, Total 7.5 g/dL (6.4-8.2); Sodium Level 137 mmol/L (136-145); Triglycerides 187 mg/dL; Very Low Density Lipoprotein 37 mg/dL (5-40)
== END | disposition home or self-care (01) ==
LOC: MTLAB 08:00
PROVIDERS: Family Provider Nurse Practitioner Primary Care; PCP Nurse Practitioner Primary Care; Referring Provider Nurse Practitioner Primary Care; Visit Provider Nurse Practitioner Primary Care
DX: E78.2 Mixed hyperlipidemia (principal); I10 Essential (primary) hypertension; E11.69 Type 2 diabetes mellitus with other specified complication; Z12.5 Encounter for screening for malignant neoplasm of prostate
CPT/HCPCS: 36415; 80053; 80061; 83036; 85025

== ENCOUNTER → 2019-04-30 11:40 | Outpatient (CLI) | payer OTHER, SELFPAY ==
[2014-02-19 21:37] VITALS: BMI 41.9
[2019-04-30 14:00] LABS: Hematocrit 44.6 % (40-54); Hemoglobin 15.1 g/dL (13.0-16.5); Mean Corp Hgb Conc 33.9 g/dL (32-36); Mean Corpuscular Hgb 31.5 pg (27.0-32.0); Mean Corpuscular Volume 93.1 fL (80-94); Platelet Count 175 K/mm3 (150-450); RBC Distribution Width SD 44.3 fl (35.1-43.9); Red Blood Count 4.79 M/mm3 (4.6-6.2); White Blood Count 7.6 K/mm3 (4.4-11.0)
[2019-04-30 14:13] LABS: ALB/GLOB Ratio 1.1 RATIO (0.9-2.4); AST(SGOT) 20 U/L (15-37); Alanine Aminotransfer ALT/SGPT 39 U/L (16-61); Albumin, Serum 3.8 g/dL (3.2-5.0); Alkaline Phosphatase 55 U/L (45-117); Anion Gap 5 (5-15); BUN 15 mg/dL (7-18); BUN/Creat Ratio 18.4 RATIO (10-20); Calcium,Total 8.9 mg/dL (8.5-10.1); Chloride 101 mmol/L (98-107); Cholesterol 117 mg/dL (200); Creatinine, Serum 0.82 mg/dL (0.70-1.30); EST Glomerular Filtration Rate 102 mL/min (>60); Est Glom Filt Rate - Afr Amer 124 mL/min (>60); Globulin 3.4 g/dL (2.2-4.2); Glucose 167 mg/dL (74-106); High Density Lipoprotein 51 mg/dL; Potassium 3.7 mmol/L (3.5-5.1); Protein, Total 7.2 g/dL (6.4-8.2); Sodium Level 138 mmol/L (136-145); Triglycerides 124 mg/dL; Very Low Density Lipoprotein 25 mg/dL (5-40)
[2019-04-30 14:15] LABS: Hemoglobin A1c 6.9 % (4.2-6.3)
== END ==
PROVIDERS: Family Provider Nurse Practitioner Primary Care; PCP Nurse Practitioner Primary Care; Referring Provider Nurse Practitioner Primary Care; Visit Provider Nurse Practitioner Primary Care
DX: E11.9 Type 2 diabetes mellitus without complications (principal); Z12.5 Encounter for screening for malignant neoplasm of prostate
CPT/HCPCS: 36415; 80053; 80061; 83036; 85027

== ENCOUNTER → 2019-05-20 11:18 | Outpatient (CLI) | payer OTHER, SELFPAY ==
[2014-02-19 21:37] VITALS: BMI 41.9
[2019-05-20 14:42] LABS: PSA,Total - Annual Screen 0.35 ng/mL (0.00-4.00)
== END ==
PROVIDERS: Family Provider Nurse Practitioner Primary Care; PCP Nurse Practitioner Primary Care; Referring Provider Nurse Practitioner Primary Care; Visit Provider Nurse Practitioner Primary Care
DX: Z12.5 Encounter for screening for malignant neoplasm of prostate (principal)
CPT/HCPCS: 36415; 84153; G0103

== ENCOUNTER → 2019-09-15 11:42 | Outpatient (CLI) | payer OTHER, SELFPAY ==
[2014-02-19 21:37] VITALS: BMI 41.9
[2019-09-15 15:40] LABS: AST(SGOT) 23 U/L (15-37); Alanine Aminotransfer ALT/SGPT 37 U/L (16-61); Cholesterol 106 mg/dL (200); High Density Lipoprotein 53 mg/dL; Triglycerides 105 mg/dL; Very Low Density Lipoprotein 21 mg/dL (5-40)
== END ==
PROVIDERS: PCP Nurse Practitioner Primary Care
DX: E78.2 Mixed hyperlipidemia (principal)
CPT/HCPCS: 36415; 80061; 84450; 84460

== ENCOUNTER → 2019-11-01 11:14 | Outpatient (CLI) | payer OTHER, SELFPAY ==
[2019-11-01 15:17] LABS: Hematocrit 43.5 % (40-54); Hemoglobin 14.9 g/dL (13.0-16.5); Mean Corp Hgb Conc 34.3 g/dL (32-36); Mean Corpuscular Hgb 31.9 pg (27.0-32.0); Mean Corpuscular Volume 93.1 fL (80-94); Mean Platelet Vol. 11.4 fl (6.2-12.0); Platelet Count 190 K/mm3 (150-450); RBC Distribution Width CV 12.9 % (11.6-14.6); RBC Distribution Width SD 43.8 fl (35.1-43.9); Red Blood Count 4.67 M/mm3 (4.6-6.2); White Blood Count 7.5 K/mm3 (4.4-11.0)
[2019-11-01 15:43] LABS: AST(SGOT) 36 U/L (15-37); Alanine Aminotransfer ALT/SGPT 56 U/L (16-61); Albumin, Serum 3.7 g/dL (3.2-5.0); Alkaline Phosphatase 59 U/L (45-117); Anion Gap 10 (5-15); BUN 12 mg/dL (7-18); BUN/Creat Ratio 13.6 RATIO (10-20); Calcium,Total 9.3 mg/dL (8.5-10.1); Chloride 99 mmol/L (98-107); Cholesterol 94 mg/dL (200); Creatinine, Serum 0.88 mg/dL (0.70-1.30); EST Glomerular Filtration Rate 93 mL/min (>60); Est Glom Filt Rate - Afr Amer 112 mL/min (>60); Globulin 3.8 g/dL (2.2-4.2); Glucose 227 mg/dL (74-106); High Density Lipoprotein 42 mg/dL; Potassium 3.6 mmol/L (3.5-5.1); Protein, Total 7.5 g/dL (6.4-8.2); Sodium Level 135 mmol/L (136-145); Triglycerides 120 mg/dL; Very Low Density Lipoprotein 24 mg/dL (5-40)
[2019-11-01 17:49] LABS: Hemoglobin A1c 8.5 % (3.8-5.6)
== END ==
PROVIDERS: PCP Nurse Practitioner Primary Care; Referring Provider Nurse Practitioner Primary Care; Visit Provider Nurse Practitioner Primary Care
DX: E11.9 Type 2 diabetes mellitus without complications (principal); Z12.5 Encounter for screening for malignant neoplasm of prostate
CPT/HCPCS: 36415; 80053; 80061; 83036; 85027

== ENCOUNTER → 2019-11-26 12:09 | Outpatient (CLI) | payer OTHER, SELFPAY ==
[2019-11-26 14:59] LABS: Hematocrit 41.7 % (40-54); Hemoglobin 14.1 g/dL (13.0-16.5); Mean Corp Hgb Conc 33.8 g/dL (32-36); Mean Corpuscular Hgb 31.5 pg (27.0-32.0); Mean Corpuscular Volume 93.1 fL (80-94); Platelet Count 186 K/mm3 (150-450); RBC Distribution Width CV 13.2 % (11.6-14.6); RBC Distribution Width SD 43.9 fl (35.1-43.9); Red Blood Count 4.48 M/mm3 (4.6-6.2); White Blood Count 7.4 K/mm3 (4.4-11.0)
[2019-11-26 15:11] LABS: CRP 2.93 mg/L (0.0-3.0)
[2019-11-29 16:08] LABS: Endomysial Antibody IgA Negative (Negative)
[2019-11-29 20:06] LABS: Immunoglobulin A 166 mg/dL (61-437); t-Transglutaminase IgA <2 U/mL (0-3)
== END ==
PROVIDERS: PCP Nurse Practitioner Primary Care; Referring Provider Internal Medicine Gastroenterology; Visit Provider Internal Medicine Gastroenterology
DX: R19.7 Diarrhea, unspecified (principal)
CPT/HCPCS: 36415; 82784; 83516; 85027; 86140; 86255

== ENCOUNTER → 2020-01-27 10:37 | Outpatient (CLI) | payer OTHER, SELFPAY ==
[2014-02-19 21:37] VITALS: BMI 41.9
[2020-01-27 13:01] LABS: AST(SGOT) 22 U/L (15-37); Alanine Aminotransfer ALT/SGPT 39 U/L (16-61); Albumin, Serum 3.6 g/dL (3.2-5.0); Alkaline Phosphatase 51 U/L (45-117); Anion Gap 6 (5-15); BUN 11 mg/dL (7-18); BUN/Creat Ratio 14.1 RATIO (10-20); Chloride 104 mmol/L (98-107); Cholesterol 94 mg/dL (200); Creatinine, Serum 0.78 mg/dL (0.70-1.30); EST Glomerular Filtration Rate 107 mL/min (>60); Est Glom Filt Rate - Afr Amer 130 mL/min (>60); Globulin 3.6 g/dL (2.2-4.2); Glucose 188 mg/dL (74-106); High Density Lipoprotein 46 mg/dL; Potassium 3.4 mmol/L (3.5-5.1); Protein, Total 7.2 g/dL (6.4-8.2); Sodium Level 140 mmol/L (136-145); Triglycerides 100 mg/dL; Very Low Density Lipoprotein 20 mg/dL (5-40)
== END ==
PROVIDERS: PCP Nurse Practitioner Primary Care; Referring Provider Nurse Practitioner Primary Care; Visit Provider Nurse Practitioner Primary Care
DX: E11.9 Type 2 diabetes mellitus without complications (principal); Z12.5 Encounter for screening for malignant neoplasm of prostate
CPT/HCPCS: 36415; 80053; 80061

== ENCOUNTER → 2020-05-08 08:31 | Outpatient (CLI) | payer OTHER, SELFPAY ==
[2014-02-19 21:37] VITALS: BMI 41.9
[2020-05-08 09:58] LABS: Hemoglobin 14.8 g/dL (13.0-16.5); Mean Corp Hgb Conc 33.6 g/dL (32-36); Mean Corpuscular Hgb 30.7 pg (27.0-32.0); Mean Corpuscular Volume 91.3 fL (80-94); Mean Platelet Vol. 10.5 fl (6.2-12.0); Platelet Count 182 K/mm3 (150-450); RBC Distribution Width CV 13.2 % (11.6-14.6); RBC Distribution Width SD 44.5 fl (35.1-43.9); Red Blood Count 4.82 M/mm3 (4.6-6.2); White Blood Count 8.1 K/mm3 (4.4-11.0)
[2020-05-08 10:14] LABS: AST(SGOT) 20 U/L (15-37); Alanine Aminotransfer ALT/SGPT 43 U/L (16-61); Albumin, Serum 3.7 g/dL (3.2-5.0); Alkaline Phosphatase 60 U/L (45-117); Anion Gap 7 (5-15); BUN 12 mg/dL (7-18); BUN/Creat Ratio 12.8 RATIO (10-20); Chloride 102 mmol/L (98-107); Cholesterol 101 mg/dL (200); Creatinine, Serum 0.94 mg/dL (0.70-1.30); EST Glomerular Filtration Rate 86 mL/min (>60); Est Glom Filt Rate - Afr Amer 105 mL/min (>60); Globulin 3.6 g/dL (2.2-4.2); Glucose 220 mg/dL (74-106); High Density Lipoprotein 48 mg/dL; Potassium 3.3 mmol/L (3.5-5.1); Protein, Total 7.3 g/dL (6.4-8.2); Sodium Level 138 mmol/L (136-145); Triglycerides 145 mg/dL; Very Low Density Lipoprotein 29 mg/dL (5-40)
[2020-05-08 10:25] LABS: Hemoglobin A1c 7.6 % (3.8-5.6)
== END ==
PROVIDERS: PCP Nurse Practitioner Primary Care; Referring Provider Nurse Practitioner Primary Care; Visit Provider Nurse Practitioner Primary Care
DX: E11.9 Type 2 diabetes mellitus without complications (principal); I10 Essential (primary) hypertension; E78.2 Mixed hyperlipidemia; N40.1 Benign prostatic hyperplasia with lower urinary tract symptoms
CPT/HCPCS: 36415; 80053; 80061; 83036; 85027

== ENCOUNTER → 2020-05-23 11:35 | Outpatient (CLI) | payer OTHER, SELFPAY ==
[2014-02-19 21:37] VITALS: BMI 41.9
[2020-05-23 15:49] LABS: PSA,Total - Annual Screen 0.25 ng/mL (0.00-4.00)
== END ==
PROVIDERS: PCP Nurse Practitioner Primary Care; Referring Provider Nurse Practitioner Primary Care; Visit Provider Nurse Practitioner Primary Care
DX: N40.1 Benign prostatic hyperplasia with lower urinary tract symptoms (principal)
CPT/HCPCS: 36415; 84153; G0103

== ENCOUNTER → 2020-12-06 11:22 | Outpatient (CLI) | payer OTHER, SELFPAY ==
[2014-02-19 21:37] VITALS: BMI 41.9
[2020-12-06 15:02] LABS: Hematocrit 41.7 % (40-54); Hemoglobin 14.4 g/dL (13.0-16.5); Mean Corp Hgb Conc 34.5 g/dL (32-36); Mean Corpuscular Hgb 31.1 pg (27.0-32.0); Mean Corpuscular Volume 90.1 fL (80-94); Mean Platelet Vol. 10.7 fl (6.2-12.0); Platelet Count 188 K/mm3 (150-450); RBC Distribution Width CV 12.9 % (11.6-14.6); RBC Distribution Width SD 42.5 fl (35.1-43.9); Red Blood Count 4.63 M/mm3 (4.6-6.2); White Blood Count 7.4 K/mm3 (4.4-11.0)
[2020-12-06 15:26] LABS: Hemoglobin A1c 9.1 % (3.8-5.6)
[2020-12-06 15:40] LABS: AST(SGOT) 24 U/L (15-37); Alanine Aminotransfer ALT/SGPT 45 U/L (16-61); Albumin, Serum 3.6 g/dL (3.2-5.0); Alkaline Phosphatase 58 U/L (45-117); Anion Gap 8 (5-15); BUN 12 mg/dL (7-18); BUN/Creat Ratio 12.5 RATIO (10-20); Calcium,Total 8.9 mg/dL (8.5-10.1); Chloride 100 mmol/L (98-107); Cholesterol 90 mg/dL (200); Creatinine, Serum 0.96 mg/dL (0.70-1.30); EST Glomerular Filtration Rate 84 mL/min (>60); Est Glom Filt Rate - Afr Amer 102 mL/min (>60); Globulin 3.5 g/dL (2.2-4.2); Glucose 242 mg/dL (74-106); High Density Lipoprotein 42 mg/dL; Potassium 3.5 mmol/L (3.5-5.1); Protein, Total 7.1 g/dL (6.4-8.2); Sodium Level 138 mmol/L (136-145); Thyroid Stim Hormone (TSH) 1.57 uIU/mL (0.358-3.74); Triglycerides 121 mg/dL; Very Low Density Lipoprotein 24 mg/dL (5-40)
== END ==
PROVIDERS: PCP Nurse Practitioner Primary Care; Referring Provider Nurse Practitioner Primary Care; Visit Provider Nurse Practitioner Primary Care
DX: E11.9 Type 2 diabetes mellitus without complications (principal)
CPT/HCPCS: 36415; 80053; 80061; 83036; 84443; 85027

== ENCOUNTER 2021-05-31 10:50 | Outpatient (CLI) | payer OTHER, SELFPAY ==
[2021-05-31 13:12] LABS: Anion Gap 7 (5-15); BUN 19 mg/dL (7-18); BUN/Creat Ratio 18.6 RATIO (10-20); Calcium,Total 9.1 mg/dL (8.5-10.1); Chloride 103 mmol/L (98-107); Creatinine, Serum 1.02 mg/dL (0.70-1.30); EST Glomerular Filtration Rate 78 mL/min (>60); Est Glom Filt Rate - Afr Amer 95 mL/min (>60); Glucose 173 mg/dL (74-106); PSA,Total - Annual Screen 0.26 ng/mL (0.00-4.00); Potassium 4.3 mmol/L (3.5-5.1); Sodium Level 136 mmol/L (136-145)
== END 2021-05-31 23:59 | disposition home or self-care (01) ==
PROVIDERS: PCP Nurse Practitioner Primary Care; Referring Provider Urology; Visit Provider Urology
DX: I10 Essential (primary) hypertension (principal); Z12.5 Encounter for screening for malignant neoplasm of prostate
CPT/HCPCS: 36415; 80048; 84153; G0103

== ENCOUNTER 2021-07-13 09:47 | Outpatient (CLI) | payer OTHER, SELFPAY ==
[2021-07-13 12:29] LABS: Anion Gap 8 (5-15); BUN 21 mg/dL (7-18); BUN/Creat Ratio 19.4 RATIO (10-20); Calcium,Total 9.4 mg/dL (8.5-10.1); Chloride 104 mmol/L (98-107); Creatinine, Serum 1.08 mg/dL (0.70-1.30); EST Glomerular Filtration Rate 73 mL/min (>60); Est Glom Filt Rate - Afr Amer 89 mL/min (>60); Glucose 170 mg/dL (74-106); Sodium Level 139 mmol/L (136-145)
== END 2021-07-13 23:59 | disposition home or self-care (01) ==
PROVIDERS: PCP Nurse Practitioner Primary Care; Referring Provider Internal Medicine Cardiovascular Disease; Visit Provider Internal Medicine Cardiovascular Disease
DX: I10 Essential (primary) hypertension (principal)
CPT/HCPCS: 36415; 80048

== ENCOUNTER → 2021-12-18 | Outpatient (CLI) | payer OTHER, SELFPAY ==
[2021-12-18 12:17] LABS: Hemoglobin 12.9 g/dL (13.0-16.5); Mean Corp Hgb Conc 33.9 g/dL (32-36); Mean Corpuscular Hgb 32.3 pg (27.0-32.0); Mean Platelet Vol. 10.3 fl (6.2-12.0); Platelet Count 185 K/mm3 (150-450); RBC Distribution Width CV 13.2 % (11.6-14.6); RBC Distribution Width SD 46.1 fl (35.1-43.9); White Blood Count 8.1 K/mm3 (4.4-11.0)
[2021-12-18 12:27] LABS: Hemoglobin A1c 6.8 % (3.8-5.6)
[2021-12-18 12:28] LABS: AST(SGOT) 19 U/L (15-37); Alanine Aminotransfer ALT/SGPT 32 U/L (16-61); Albumin, Serum 3.5 g/dL (3.2-5.0); Alkaline Phosphatase 49 U/L (45-117); Anion Gap 8 (5-15); BUN 21 mg/dL (7-18); BUN/Creat Ratio 17.9 RATIO (10-20); Calcium,Total 9.4 mg/dL (8.5-10.1); Chloride 103 mmol/L (98-107); Cholesterol 85 mg/dL (200); Creatinine, Serum 1.17 mg/dL (0.70-1.30); EST Glomerular Filtration Rate 67 mL/min (>60); Est Glom Filt Rate - Afr Amer 81 mL/min (>60); Globulin 3.6 g/dL (2.2-4.2); Glucose 156 mg/dL (74-106); High Density Lipoprotein 42 mg/dL; Potassium 4.6 mmol/L (3.5-5.1); Protein, Total 7.1 g/dL (6.4-8.2); Sodium Level 138 mmol/L (136-145); Triglycerides 114 mg/dL; Very Low Density Lipoprotein 23 mg/dL (5-40)
== END | disposition home or self-care (01) ==
LOC: MTLAB 10:29
PROVIDERS: PCP Nurse Practitioner Primary Care; Referring Provider Nurse Practitioner Primary Care; Visit Provider Nurse Practitioner Primary Care
DX: E11.9 Type 2 diabetes mellitus without complications (principal); Z12.5 Encounter for screening for malignant neoplasm of prostate
CPT/HCPCS: 36415; 80053; 80061; 83036; 84153; 85027; G0103

== ENCOUNTER → 2024-09-27 | Outpatient (CLI) | payer MEDICARE, OTHER, SELFPAY ==
[2024-09-27 16:54] LABS: PSA,Total - Annual Screen 0.22 ng/mL (0.02-4.00)
== END | disposition home or self-care (01) ==
PROVIDERS: PCP Nurse Practitioner Primary Care; Referring Provider Nurse Practitioner; Visit Provider Nurse Practitioner
DX: Z12.5 Encounter for screening for malignant neoplasm of prostate (principal)
CPT/HCPCS: 36415; 84153; G0103